=== PATIENT | male | born 1950 | race Caucasian/White ===

== ENCOUNTER → 2019-02-27 | Outpatient (CLI) | payer MEDICARE ==
[2019-02-27 15:05] LABS: Calcium 9.7 mg/dL (8.4-10.2); Potassium 3.6 mmol/L (3.5-5.1)
[2019-02-27 15:39] LABS: Anisocytosis Slight; HCT 31.7 % (39.0-53.0); HGB 10.1 gm/dL (13.0-17.5); Hypochromasia Marked; MCH 23.4 pg (25.0-35.0); MCHC 31.8 g/dL (31.0-37.0); MCV 73.5 fL (80.0-100.0); Mean Platelet Volume 8.2; Microcytosis Moderate; Poikilocytosis Moderate; RBC 4.31 m/uL (4.30-5.90); RDW 19.2 % (11.5-15.5); WBC 12.2 k/uL (3.8-10.6)
[2019-02-27 15:57] LABS: Eosinophils # (M) 0.12 k/uL (0-0.7); Lymphocytes # (M) 2.68 k/uL (1.0-4.8); Metamyelocytes # (M) 0.12 k/uL (0); Metamyelocytes % 1 %; Monocytes # (M) 1.46 k/uL (0-1.0); Myelocytes # (M) 0.12 k/uL (0); Myelocytes % 1 %; Neutrophils % (M) 65 %; Nucleated Red Blood Cells 0 /100 WBC (0-0); Total Cells Counted 200
[2019-02-27 15:58] LABS: Large Platelets Present; Platelet Count 68 k/uL (150-450)
[2019-02-27 16:00] LABS: Poikilocytosis (M) Present
[2019-02-27 16:01] LABS: Polychromasia Present
== END | disposition home or self-care (01) ==
LOC: LABPAT 13:35
PROVIDERS: ATTEND Urology
DX: Z01.818 Encounter for other preprocedural examination (principal); Z01.812 Encounter for preprocedural laboratory examination; D09.0 Carcinoma in situ of bladder
CPT/HCPCS: 80048; 85025; 87086; 93005

== ENCOUNTER 2019-03-07 05:32 | Day surgery (SDC) | payer MEDICARE ==
[2019-02-26 09:03] VITALS: BMI 27.2
--- NOTE | 2019-03-03 12:02 | P.GSHP ---
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 He completed a six-week course of induction intravesical BCG in August 2018. Biopsies in October 2018 showed TA grade 3 urothelial carcinoma wwith CIS. He completed a second 6 week course of induction intravesical BCG in mid January, and now comes for repeat biopsies. - Constitutional Constitutional: Denies chills, Denies fever - Genitourinary (Female) Genitourinary: Denies dysuria, Denies hematuria Past Medical History Past Medical History: Cancer, Hyperlipidemia, Hypertension, Osteoarthritis (OA) Additional Past Medical History / Comment(s): vertigo, bladder cancer History of Any Multi-Drug Resistant Organisms: None Reported Past Surgical History: Appendectomy, Heart Catheterization, Hernia Repair Past Anesthesia/Blood Transfusion Reactions: No Reported Reaction Smoking Status: Current every day smoker - Past Family History Mother Family Medical History: Cancer Additional Family Medical History / Comment(s): lung Medications and Allergies Home Medications Medication Instructions Recorded Confirmed Type Aspirin [Adult Low Dose Aspirin EC] 81 mg PO DAILY 02/26/19 02/26/19 History Atorvastatin [Lipitor] 40 mg PO BID 02/26/19 02/26/19 History Losartan [Cozaar] 12.5 mg PO DAILY 02/26/19 02/26/19 History Meclizine [Antivert] 25 mg PO DAILY 02/26/19 02/26/19 History amLODIPine [Norvasc] 10 mg PO DAILY 02/26/19 02/26/19 History Allergies Allergy/AdvReac Type Severity Reaction Status Date / Time No Known Allergies Allergy Verified 02/26/19 08:50 Surgical - Exam - General well developed, well nourished, no distress - Neck no masses, trachea midline - Respiratory normal respiratory effort, clear to auscultation - Cardiovascular Rhythm: regular Abnormal Heart Sounds: no systolic murmur, no diastolic murmur, no rub, no S3 Gallop, no S4 Gallop, no click, no other - Abdomen Abdomen: soft, non tender, no guarding, no rigid, no rebound - Genitourinary normal penis with no external lesions, testicles non-tender - Psychiatric oriented to time, oriented to person, oriented to place, speech is normal, memory intact Assessment and Plan (1) Carcinoma in situ of bladder Status: Acute Code(s): D09.0 - CARCINOMA IN SITU OF BLADDER SNOMED Code(s): 90914695 Plan: Cystoscopy, bladder biopsies, TURBT. The patient understands the rationale for the procedure, as well as potential risks which include anesthesia, bleeding, infection, postoperative urinary retention, and bladder perforation.
[~2019-03-07 05:32] MED LIST: DEXAMETHASONE SOD PHOSPHATE 10 MG/ML 1 ML VIAL IV ONE; HYDROmorphone 0.5 MG/0.5 ML SYRINGE IVP PRN; MIDAZOLAM 2 MG/2 ML VIAL IV PRN; ONDANSETRON 4 MG/2 ML VIAL IVP ONE
[2019-03-07] MEDS: LACTATED RINGERS 1,000 ML IV SCH ×2 (06:46→07:32)
[2019-03-07] MEDS ORDERED: LIDOCAINE 1% 20 ML VIAL (10MG/ML) FOR IV START INTRADERMA ONE (06:46)
[2019-03-07 07:11] LABS: Anisocytosis Slight; Basophils % (A) 0 %; Eosinophils # (A) 0.1 k/uL (0-0.7); Eosinophils % (A) 1 %; HCT 34.3 % (39.0-53.0); HGB 10.7 gm/dL (13.0-17.5); Hypochromasia Slight; Lymphocytes # (A) 2.3 k/uL (1.0-4.8); Lymphocytes % (A) 15 %; MCH 21.7 pg (25.0-35.0); MCHC 31.1 g/dL (31.0-37.0); MCV 69.6 fL (80.0-100.0); Mean Platelet Volume 11.1; Microcytosis Marked; Monocytes # (A) 2.4 k/uL (0-1.0); Monocytes % (A) 15 %; Neutrophils # (A) 10.5 k/uL (1.3-7.7); Neutrophils % (A) 66 %; Poikilocytosis Slight; RBC 4.93 m/uL (4.30-5.90); RDW 18.2 % (11.5-15.5); WBC 15.9 k/uL (3.8-10.6)
[2019-03-07 07:15] LABS: Platelet Count 82 k/uL (150-450)
[2019-03-07] MEDS ORDERED: fentaNYL (PF) 50 MCG/ML 2 ML AMP ONE (07:27)
[2019-03-07] MEDS ORDERED: NEOSTIGMINE 1 MG/ML 10 ML VIAL ONE (07:27)
[2019-03-07] MEDS ORDERED: ePHEDrine SULFATE/0.9% NACL/PF 50 MG/5 ML SYRINGE IV ONE (07:27)
[2019-03-07] MEDS ORDERED: ROCURONIUM BROMIDE 10 MG/ML 10 ML VIAL IV ONE (07:27)
[2019-03-07] MEDS ORDERED: LIDOCAINE 1% INJ 10MG/ML (20 ML MDV) ONE (07:27)
[2019-03-07] MEDS ORDERED: GLYCOPYRROLATE 0.2 MG/ML 2 ML VIAL ONE (07:27)
[2019-03-07] MEDS ORDERED: MIDAZOLAM 2 MG/2 ML VIAL ONE (07:27)
[2019-03-07] MEDS ORDERED: PHENYLEPHRINE-0.9% NACL SYG 1 MG/10 ML SYRINGE ONE (07:27)
[2019-03-07] MEDS ORDERED: PROPOFOL 10 MG/ML 20 ML VIAL IV ONE (07:27)
[2019-03-07] MEDS ORDERED: LACTATED RINGERS 1,000 ML IV ONE ×2 (08:32)
[2019-03-07 09:11] VITALS: TEMP 97
--- NOTE | 2019-03-07 09:11 | P.OP ---
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 He completed a six-week course of induction intravesical BCG in August 2018. Biopsies in October 2018 showed Ta Grade 3 ur othelial carcinoma wwith CIS. He completed a second 6 week course of induction intravesical BCG in mid January, and now comes for repeat biopsies. Operative Findings: Suspected persistent urothelial carcinoma on left posterior lateral bladder wall, right lateral bladder wall, and anterior bladder wall. Dystrophic calcifications are seen at the bladder dome. Description of Procedure: The patient was taken in the operating room and placed in the dorsal lithotomy position, with his legs supported in Blaise stirrups. The external genitalia was prepped and draped sterilely. The 25-[place] ACMI resectoscope sheath was introduced into the bladder. The bladder was inspected. Both ureteral orifices were of normal anatomic location and configuration, and clear urine effluxed from both. The entire bladder was examined, revealing erythematous suspicious for persistent CIS on the left posterior lateral bladder wall, right lateral bladder wall just cephalad to the vesical neck, and anterior bladder wall just cephalad to the vesical neck. Dystrophic calcifications were seen of prior resection sites at the bladder dome and anterior bladder wall. The prostate was visually occluded with a bilobar configuration. There were no urothelial changes seen within the prostatic urethra. Using the bipolar cutting loop, the mucosal changes on the left posterior lateral bladder wall, right lateral bladder wall, and anterior bladder wall were resected down to the muscle. The dystrophic calcifications were resected from the bladder dome. Excellent hemostasis was attained. There was no evidence of bladder perforation. The resected tissue was saved and sent for pathologic examination. An 18-[place] Medrano catheter was inserted. The return was clear. The patient tolerated the procedure well. He was taken to the recovery room in stable condition.
[2019-03-07 10:14] VITALS: PULSE 85; RESP 18
[2019-03-07 10:44] VITALS: BP 108/58
== END 2019-03-07 11:35 | disposition home or self-care (01) ==
LOC: OR 05:32
PROVIDERS: ATTEND Urology
DX: D09.0 Carcinoma in situ of bladder (principal); N32.89 Other specified disorders of bladder; I10 Essential (primary) hypertension; E78.5 Hyperlipidemia, unspecified; M19.90 Unspecified osteoarthritis, unspecified site; R42 Dizziness and giddiness; F17.200 Nicotine dependence, unspecified, uncomplicated; Z79.82 Long term (current) use of aspirin; Z79.899 Other long term (current) drug therapy; Z92.29 Personal history of other drug therapy; Z90.49 Acquired absence of other specified parts of digestive tract; Z98.890 Other specified postprocedural states; Z80.1 Family history of malignant neoplasm of trachea, bronchus and lung
CPT/HCPCS: 52235; 86900; 86901; 85025; 86850; 88307; J2250; J1100; J2710; J0690; J2405; J2001; J3010; J2370; J2704